=== PATIENT | female | born 1980 | race Caucasian/White ===

== ENCOUNTER 2017-09-23 13:28 | Outpatient (CLI) | payer OTHER ==
[~2017-09-23 13:28] MED LIST: IBUP-1222 PO; OXYC-302 PO; PREN1TAB60 PO
[2017-09-23] MEDS ORDERED: PLEASE ENTER HEIGHT AND WEIGHT MC SCH (14:00)
[2017-09-23] MEDS ORDERED: BETAMETHASONE 6 MG/ML, 5ML IM ONE (14:00)
== END 2017-09-23 20:51 | disposition home or self-care (01) ==
LOC: LDOP 13:28
PROVIDERS: ATTEND Obstetrics & Gynecology
DX: Z34.80 Encounter for supervision of other normal pregnancy, unspecified trimester (principal)
CPT/HCPCS: 59025; 96372; 99211; J0702; G0463

== ENCOUNTER 2017-09-26 05:58 | Inpatient (IN) | payer OTHER ==
[~2017-09-26] VITALS: Ht 170.2 cm; Wt 76.3 kg
[~2017-09-26 05:58] MED LIST changes: +NEWBORN KIT ONE
[2017-09-26] MEDS ORDERED: OXYTOCIN 30U/ 0.9% NaCL 500ML 500 ML IV SCH (06:01)
[2017-09-26] MEDS ORDERED: LACTATED RINGERS 1,000 ML IV SCH ×2 (06:01→06:15)
[2017-09-26 06:24] VITALS: BP 99/51
[2017-09-26 06:29] LABS: BASOPHILS # (AUTO) 0.01 x10^3/uL (0-0.1); BASOPHILS % (AUTO) 0 % (0-1); EOSINOPHILS # (AUTO) 0.05 x10^3/uL (0-0.4); EOSINOPHILS % (AUTO) 1 % (1-7); LYMPHOCYTES # (AUTO) 2.14 x10^3/uL (1-3.4); LYMPHOCYTES % (AUTO) 24 % (22-44); MD NO; MEAN CORPUSCULAR HEMOGLOBIN 30.3 pg (27.0-34.8); MEAN CORPUSCULAR HGB CONC 33.7 g/dL (32.4-35.8); MEAN PLATELET VOLUME 10.1 fL (7.4-10.4); MONOCYTES # (AUTO) 0.74 x10^3/uL (0.2-0.8); MONOCYTES % (AUTO) 8 % (2-9); NEUTROPHILS # (AUTO) 6.14 x10^3/uL (1.8-6.8); NEUTROPHILS % (AUTO) 68 % (42-75); PLATELET COUNT 165 x10^3/uL (130-400); RED BLOOD COUNT 3.79 x10^6/uL (3.82-5.3); RED CELL DISTRIBUTION WIDTH 14.5 % (9.6-15.2)
[2017-09-26] MEDS ORDERED: LACTATED RINGERS 1,000 ML IVBOLUS ONE (06:30)
[2017-09-26] MEDS ORDERED: SODIUM CITRATE/CITRIC ACID 30 ML UDC PO ONE (06:30)
[2017-09-26] MEDS ORDERED: METOCLOPRAMIDE 5 MG/ML, 2ML IV ONE (06:30)
[2017-09-26] MEDS ORDERED: METOCLOPRAMIDE 5 MG/ML, 2ML ONE (07:09)
[2017-09-26] MEDS ORDERED: SODIUM CITRATE/CITRIC ACID 30 ML UDC ONE (07:09)
[2017-09-26] MEDS ORDERED: OXYTOCIN 30U/ 0.9% NaCL 500ML 500 ML ONE (07:09)
[2017-09-26] MEDS ORDERED: ONDANSETRON 2MG/ML, 2ML ONE (07:54)
[2017-09-26] MEDS ORDERED: OXYTOCIN 10 UNITS/ML, 1ML ONE (07:54)
[2017-09-26] MEDS ORDERED: FENTANYL PF 100 MCG/2ML ONE (07:54)
[2017-09-26] MEDS ORDERED: CEFAZOLIN 1,000 MG ONE (07:54)
[2017-09-26] MEDS ORDERED: HYDROmorphone 2 MG/ML, 1ML ONE (07:54)
[2017-09-26] MEDS ORDERED: BUPIVACAINE 0.25% ONE (08:01)
[2017-09-26] MEDS: LACTATED RINGERS 1,000 ML IV SCH ×4 (09:08→19:08)
[2017-09-26] MEDS: OXYTOCIN 30U/ 0.9% NaCL 500ML 500 ML IV SCH ×2 (09:25→19:08)
[2017-09-26] MEDS ORDERED: ONDANSETRON 2MG/ML, 2ML IV PRN (09:30)
[2017-09-26] MEDS ORDERED: METOCLOPRAMIDE 5 MG/ML, 2ML IV PRN (09:30)
[2017-09-26] MEDS ORDERED: MISOPROSTOL 200 MCG TABLET PR PRN (09:30)
[2017-09-26] MEDS ORDERED: morphine SULFATE 10 MG/ML, 1ML IVPush PRN (09:30)
[2017-09-26] MEDS ORDERED: ACETAMINOPHEN 325 MG TABLET PO PRN ×2 (09:30)
[2017-09-26] MEDS ORDERED: OXYcodone/APAP 5/325MG TABLET PO PRN (09:30)
[2017-09-26] MEDS ORDERED: CALCIUM CARBONATE 500 MG TAB.CHEW PO PRN (09:30)
[2017-09-26] MEDS ORDERED: KETOROLAC 30 MG/1 ML ONE (10:16)
[2017-09-26] MEDS: KETOROLAC 30 MG/1 ML IV PRN ×3 (10:18→23:18)
[2017-09-26 11:25] VITALS: BP 104/69
[2017-09-26] MEDS: OXYcodone/APAP 5/325MG TABLET PO PRN ×3 (13:32→18:48)
[2017-09-26 15:55] VITALS: BP 98/67
[2017-09-26 16:53] LABS: BASOPHILS # (AUTO) 0.02 x10^3/uL (0-0.1); BASOPHILS % (AUTO) 0 % (0-1); EOSINOPHILS # (AUTO) 0.03 x10^3/uL (0-0.4); EOSINOPHILS % (AUTO) 0 % (1-7); LYMPHOCYTES # (AUTO) 2.28 x10^3/uL (1-3.4); LYMPHOCYTES % (AUTO) 21 % (22-44); MD NO; MEAN CORPUSCULAR HEMOGLOBIN 29.8 pg (27.0-34.8); MEAN CORPUSCULAR HGB CONC 32.9 g/dL (32.4-35.8); MEAN CORPUSCULAR VOLUME 90.6 fL (80-100); MEAN PLATELET VOLUME 10.3 fL (7.4-10.4); MONOCYTES # (AUTO) 0.89 x10^3/uL (0.2-0.8); MONOCYTES % (AUTO) 8 % (2-9); NEUTROPHILS # (AUTO) 7.49 x10^3/uL (1.8-6.8); NEUTROPHILS % (AUTO) 70 % (42-75); PLATELET COUNT 130 x10^3/uL (130-400); RED BLOOD COUNT 3.33 x10^6/uL (3.82-5.3); RED CELL DISTRIBUTION WIDTH 14.4 % (9.6-15.2)
[2017-09-26 20:00] VITALS: BP 95/57
[2017-09-27] VITALS: BP 97/51
[2017-09-27] MEDS: LACTATED RINGERS 1,000 ML IV SCH ×5 (01:08→16:35)
[2017-09-27] MEDS: OXYcodone/APAP 5/325MG TABLET PO PRN ×6 (02:54→23:00)
[2017-09-27 04:00] VITALS: BP 105/64
[2017-09-27] MEDS: OXYTOCIN 30U/ 0.9% NaCL 500ML 500 ML IV SCH ×2 (05:08→15:08)
[2017-09-27] MEDS: KETOROLAC 30 MG/1 ML IV PRN (06:57)
[2017-09-27] MEDS: DOCUSATE 100 MG CAPSULE PO PRN ×2 (06:57→23:00)
[2017-09-27 08:00] VITALS: BP 106/62
[2017-09-27] MEDS: PRENATAL VIT/IRON/FA 1 EACH TABLET PO SCH (08:56)
[2017-09-27] MEDS: IBUPROFEN 600 MG TABLET PO PRN ×2 (13:03→18:59)
[2017-09-27 19:15] VITALS: BP 109/67
[2017-09-28] MEDS: LACTATED RINGERS 1,000 ML IV SCH ×2 (01:08)
[2017-09-28] MEDS: OXYTOCIN 30U/ 0.9% NaCL 500ML 500 ML IV SCH (01:08)
[2017-09-28] MEDS: IBUPROFEN 600 MG TABLET PO PRN ×3 (01:25→13:00)
[2017-09-28] MEDS: OXYcodone/APAP 5/325MG TABLET PO PRN ×3 (03:08→11:29)
[2017-09-28 07:10] VITALS: BP 106/68
[2017-09-28] MEDS: PRENATAL VIT/IRON/FA 1 EACH TABLET PO SCH (07:19)
[2017-09-28] MEDS: DOCUSATE 100 MG CAPSULE PO PRN (07:19)
[2017-09-28] MEDS ORDERED: IBUP-1222 PO (10:40)
[2017-09-28] MEDS ORDERED: OXYC-302 PO (10:40)
[2017-09-28] MEDS ORDERED: FERR325T5 PO (10:43)
== END 2017-09-28 14:05 | disposition home or self-care (01) | DRG 765 ==
LOC: LDIP 05:58 → 2NW 10:59
PROVIDERS: ADMIT Obstetrics & Gynecology; ATTEND Obstetrics & Gynecology
PROC: 10D00Z1 Extraction of Products of Conception, Low, Open Approach (ICD-10-PCS; principal; 2017-09-26)
DX: O34.211 Maternal care for low transverse scar from previous cesarean delivery (principal); D62 Acute posthemorrhagic anemia; Z37.0 Single live birth; O26.23 Pregnancy care for patient with recurrent pregnancy loss, third trimester; Z3A.37 37 weeks gestation of pregnancy; O90.81 Anemia of the puerperium
CPT/HCPCS: 36415; 85025; 86850; 86900; 86923; J0690; J1170; J1885; J2405; J3010; J3490; J2590; J2765; J7120

== ENCOUNTER 2018-12-12 15:43 | Outpatient (CLI) | payer OTHER ==
[~2018-12-12 15:43] MED LIST changes: +FERR325T5 PO; -NEWBORN KIT ONE
== END 2018-12-12 23:59 | disposition home or self-care (01) ==
LOC: CFH 15:43
PROVIDERS: ATTEND Registered Nurse
DX: R07.89 Other chest pain (principal)
CPT/HCPCS: 93306

== ENCOUNTER 2020-10-12 02:58 | Emergency (ER) | payer OTHER ==
[~2020-10-12] VITALS: Ht 170.2 cm; Wt 75.2 kg
[~2020-10-12 02:58] MED LIST changes: -OXYC-302 PO; +OXYC1TAB14 PO
--- NOTE | 2020-10-12 03:33 | NUR ---
Pt arrived with complaints of SOB x1 month that has become worse tonight waking her up from her sleep. EKG done in triage. Pt 99% on RA, no noticable signs of increased work of breathing, connected to BP and O2 monitors, no prior resp hx, at bedside, VSS. Positioned for comfort. TM
[2020-10-12 03:40] LABS: BASOPHILS % (AUTO) 1 % (0-1); EOSINOPHILS % (AUTO) 2 % (1-7); LYMPHOCYTES % (AUTO) 30 % (22-44); MEAN CORPUSCULAR HEMOGLOBIN 31.2 pg (27.0-34.8); MEAN PLATELET VOLUME 9.3 fL (7.4-10.4); MONOCYTES % (AUTO) 5 % (2-9); NEUTROPHILS % (AUTO) 61 % (42-75); PLATELET COUNT 190 x10^3/uL (130-400); RED BLOOD COUNT 4.37 x10^6/uL (3.82-5.3); RED CELL DISTRIBUTION WIDTH 13.4 % (9.6-15.2)
[2020-10-12 03:43] VITALS: BP 105/58
[2020-10-12 03:49] LABS: ALANINE AMINOTRANSFERASE 29 U/L (12-78); ALBUMIN 3.8 g/dL (3.4-5.0); ANION GAP 8 mmol/L (5-15); CALCIUM 8.2 mg/dL (8.5-10.1); CHLORIDE 108 mmol/L (98-107); CREATININE 0.51 mg/dL (0.55-1.02)
[2020-10-12 03:54] LABS: ALKALINE PHOSPHATASE 71 U/L (45-117); BILIRUBIN,TOTAL 0.3 mg/dL (0.2-1.0); TOTAL PROTEIN 7.4 g/dL (6.4-8.2); TROPONIN I < 0.015 ng/mL (0.000-0.045)
== END 2020-10-12 04:47 | disposition home or self-care (01) ==
LOC: ED 03:30
DX: R06.00 Dyspnea, unspecified (principal); F41.1 Generalized anxiety disorder
CPT/HCPCS: 36415; 71045; 80053; 83880; 84484; 84703; 85025; 93005; 99285; Q0177